=== PATIENT | female | born 1980 | race Caucasian/White ===

== ENCOUNTER 2016-11-21 11:33 | Emergency (ER) | payer OTHER ==
[~2016-11-21] VITALS: Ht 165.1 cm; Wt 81.6 kg
[2016-11-21 12:54] VITALS: BP 114/64
--- NOTE | 2016-11-21 12:57 | PHYS DOC ---
Adult General Chief Complaint Chief Complaint: EARACHE/EAR PAIN [facility] HPI Patient is a 36 year old female with no significant medical history who presents today with mild right ear pain and a sore throat that began yesterday. Patient denies any fever or congestion. Patient states her son is home with RSV. Review of Systems Review of Systems Constitutional: See history of present illness Eyes: Denies change in visual acuity, redness, or eye pain [] HENT: Right ear pain and sore throat [] Respiratory: Denies cough or shortness of breath [] Cardiovascular: No additional information not addressed in HPI [] GI: Denies abdominal pain, nausea, vomiting, bloody stools or diarrhea [] : Denies dysuria or hematuria [] Musculoskeletal: Denies back pain or joint pain [] Integument: Denies rash or skin lesions [] Neurologic: Denies headache, focal weakness or sensory changes [] Endocrine: Denies polyuria or polydipsia [] Allergies Allergies Allergies Coded Allergies Type Severity Reaction Last Updated Verified erythromycin base Allergy Intermediate 11/21/16 Yes Physical Exam Physical Exam Constitutional: Well developed, well nourished, no acute distress, non-toxic appearance. [] HENT: Normocephalic, atraumatic, bilateral external ears normal, oropharynx moist, no oral exudates, nose normal. [] Right TM is mildly injected with small amount of cloudy fluid. Mild erythema to posterior pharynx Eyes: PERRLA, EOMI, conjunctiva normal, no discharge. [] Neck: Normal range of motion, no tenderness, supple, no stridor. [] Cardiovascular:Heart rate regular rhythm, no murmur [] Lungs & Thorax: Bilateral breath sounds clear to auscultation [] Abdomen: Bowel sounds normal, soft, no tenderness, no masses, no pulsatile masses. [] Skin: Warm, dry, no erythema, no rash. [] Back: No tenderness, no CVA tenderness. [] Extremities: No tenderness, no cyanosis, no clubbing, ROM intact, no edema. [] Neurologic: Alert and oriented X 3, normal motor function, normal sensory function, no focal deficits noted. [] Psychologic: Affect normal, judgement normal, mood normal. [] Current Patient Data Vital Signs Vital Signs Date Time Temp Pulse Resp B/P Pulse Ox O2 Delivery O2 Flow Rate FiO2 11/21/16 12:54 98.8 88 14 97 Room Air 98.8 EKG EKG [] Radiology/Procedures Radiology/Procedures [] Course & Med Decision Making Course & Med Decision Making Pertinent Labs and Imaging studies reviewed. (See chart for details) Patient has right otitis media, and pharyngitis discharged with amoxicillin for 10 days, Tylenol /Motrin recommended for pain or fever. Follow-up with her own PCP in 7 days. Saltwater gargles also recommended. Dragon Disclaimer Dragon Disclaimer This electronic medical record was generated, in whole or in part, using a voice recognition dictation system. Departure Departure Impression: Primary Impression: Otitis media Additional Impression: Pharyngitis, acute Disposition: 01 HOME, SELF-CARE Condition: STABLE Patient Instructions: Otitis Media, Adult Additional Instructions: You were seen for an ear infection. You also have a sore throat. Please complete your antibiotics. Take Tylenol every 4 hours and Motrin every 6 hours as needed for pain or fever. Use saltwater gargles as well. Follow-up with your own doctor in one week. Come back to the emergency room if symptoms worsen. Scripts Amoxicillin 875 Mg Tablet1 Tab PO BID #20 TAB Prov:BELINDA [employer] DIRECT[employer] 11/21/16 Problem Qualifiers Primary Impression: Otitis media Otitis media type: other nonsuppurative Laterality: right Chronicity: acute Recurrence: not specified as recurrent Qualified Code: H65.191 - Other acute nonsuppurative otitis media, right ear Additional Impression: Pharyngitis, acute Pharyngitis/tonsillitis etiology: unspecified etiology Qualified Code: J02.9 - Acute pharyngitis, unspecified BELINDA [employer] ST[employer] DIRECTOR Nov 21, 2016 12:57
[2016-11-21] MEDS ORDERED: AMOX875T PO (13:01)
[2016-11-21] MEDS ORDERED: FLUC150T2 PO (13:08)
[2016-11-22 08:22] LABS: NEGATIVE OBC STREP NEG; POSITIVE OBC STREP POS
== END 2016-11-21 13:10 | disposition home or self-care (01) ==
LOC: ER 11:33
DX: H65.191 Other acute nonsuppurative otitis media, right ear (principal); J02.9 Acute pharyngitis, unspecified; Z88.1 Allergy status to other antibiotic agents
CPT/HCPCS: 87070; 87880; 99283